=== PATIENT | male | born 1970 | race Caucasian/White ===

== ENCOUNTER 2018-11-20 17:09 | Emergency (ER) | payer OTHER ==
[~2018-11-20] VITALS: Ht 180.3 cm; Wt 88.5 kg
[2018-11-20 19:14] VITALS: BP 131/75
== END 2018-11-20 19:15 | disposition home or self-care (01) ==
LOC: ED 19:09
DX: R20.2 Paresthesia of skin (principal); R42 Dizziness and giddiness; M54.5 Low back pain; R11.0 Nausea; Z90.89 Acquired absence of other organs
CPT/HCPCS: 36415; 71046; 80048; 82040; 84484; 85025; 93005; 99284

== ENCOUNTER 2019-02-21 20:24 | Emergency (ER) | payer OTHER ==
[~2019-02-21] VITALS: Ht 180.3 cm; Wt 84.8 kg
[2019-02-21] MEDS ORDERED: KETOROLAC 60 MG/2 ML ONE (20:32)
[2019-02-21 20:54] LABS: BASOPHILS # (AUTO) 0.04 x10^3/uL (0-0.1); BASOPHILS % (AUTO) 1 % (0-1); EOSINOPHILS # (AUTO) 0.36 x10^3/uL (0-0.4); EOSINOPHILS % (AUTO) 5 % (1-7); LYMPHOCYTES # (AUTO) 1.73 x10^3/uL (1-3.4); LYMPHOCYTES % (AUTO) 24 % (22-44); MD NO; MEAN CORPUSCULAR HEMOGLOBIN 31.5 pg (27.5-34.5); MEAN CORPUSCULAR HGB CONC 33.3 g/dL (33.2-36.2); MEAN CORPUSCULAR VOLUME 94.5 fL (81-97); MEAN PLATELET VOLUME 10.8 fL (7.4-10.4); MONOCYTES # (AUTO) 0.49 x10^3/uL (0.2-0.8); MONOCYTES % (AUTO) 7 % (2-9); NEUTROPHILS # (AUTO) 4.47 x10^3/uL (1.8-6.8); NEUTROPHILS % (AUTO) 63 % (42-75); PLATELET COUNT 201 x10^3/uL (130-400); RED BLOOD COUNT 5.03 x10^6/uL (4.38-5.82); RED CELL DISTRIBUTION WIDTH 12.3 % (9.4-14.8)
[2019-02-21 21:00] VITALS: BP 114/77
[2019-02-21] MEDS ORDERED: KETOROLAC 30 MG/1 ML IM ONE (21:00)
--- NOTE | 2019-02-21 21:00 | NUR ---
CC UA COLLECTED AND SENT TO THE LAB.
[2019-02-21 21:03] LABS: ALBUMIN 3.9 g/dL (3.4-5.0); ANION GAP 6 mmol/L (5-15); CALCIUM 8.8 mg/dL (8.5-10.1); CHLORIDE 108 mmol/L (98-107); CREATININE 0.99 mg/dL (0.7-1.3)
--- NOTE | 2019-02-21 21:05 | NUR ---
THE PT STATED THAT HIS PAIN IS "BETTER".
[2019-02-21 21:11] LABS: CULTURE INDICATED? NO; MICROSCOPIC NOT IND
== END 2019-02-21 21:48 | disposition home or self-care (01) ==
LOC: ED 20:36
DX: R10.31 Right lower quadrant pain (principal); R35.0 Frequency of micturition; Z90.89 Acquired absence of other organs
CPT/HCPCS: 36415; 74176; 80048; 81003; 82040; 85025; 96372; 99284; J1885

== ENCOUNTER 2020-01-09 11:44 | Emergency (ER) | payer OTHER ==
[~2020-01-09] VITALS: Ht 180.3 cm; Wt 90.9 kg
--- NOTE | 2020-01-09 12:18 | NUR ---
C/O RLQ ABD PAIN RADIATES DOWN TO GROIN AND BACK X1 WEEK. PLACED ON VITALS MONITORS, CALL LIGHT PLACED WITHIN REACH.
[2020-01-09] MEDS ORDERED: SODIUM CHLORIDE FLUSH 10ML SYR IVF ONE (12:30)
[2020-01-09] MEDS ORDERED: ONDANSETRON 2MG/ML, 2ML IVPush ONE (12:30)
[2020-01-09] MEDS ORDERED: ONDANSETRON 2MG/ML, 2ML ONE (12:32)
[2020-01-09] MEDS ORDERED: MORPHINE SULFATE 4 MG/ML, 1ML ONE ×2 (12:32→13:03)
[2020-01-09] MEDS: MORPHINE SULFATE 4 MG/ML, 1ML IVPush PRN ×2 (12:35→13:06)
[2020-01-09 12:41] LABS: BASOPHILS # (AUTO) 0.06 x10^3/uL (0-0.1); BASOPHILS % (AUTO) 1 % (0-1); EOSINOPHILS # (AUTO) 0.26 x10^3/uL (0-0.4); EOSINOPHILS % (AUTO) 4 % (1-7); LYMPHOCYTES # (AUTO) 1.72 x10^3/uL (1-3.4); LYMPHOCYTES % (AUTO) 25 % (22-44); MD NO; MEAN CORPUSCULAR HEMOGLOBIN 30.8 pg (27.5-34.5); MEAN CORPUSCULAR HGB CONC 33.5 g/dL (33.2-36.2); MEAN PLATELET VOLUME 10.1 fL (7.4-10.4); MONOCYTES # (AUTO) 0.38 x10^3/uL (0.2-0.8); MONOCYTES % (AUTO) 6 % (2-9); NEUTROPHILS # (AUTO) 4.48 x10^3/uL (1.8-6.8); NEUTROPHILS % (AUTO) 65 % (42-75); PLATELET COUNT 231 x10^3/uL (130-400); RED BLOOD COUNT 5.33 x10^6/uL (4.38-5.82); RED CELL DISTRIBUTION WIDTH 12.7 % (9.4-14.8)
--- NOTE | 2020-01-09 12:46 | NUR ---
PT TRANSPORTED TO CT.
[2020-01-09 12:49] LABS: MICROSCOPIC NOT IND
[2020-01-09 12:51] LABS: ALANINE AMINOTRANSFERASE 44 U/L (12-78); ANION GAP 6 mmol/L (5-15); CALCIUM 9.2 mg/dL (8.5-10.1); CHLORIDE 109 mmol/L (98-107); CREATININE 0.92 mg/dL (0.7-1.3)
[2020-01-09 12:53] LABS: ALKALINE PHOSPHATASE 96 U/L (45-117); BILIRUBIN,TOTAL 0.6 mg/dL (0.2-1.0); TOTAL PROTEIN 7.8 g/dL (6.4-8.2)
[2020-01-09 13:55] VITALS: BP 117/74
--- NOTE | 2020-01-09 13:55 | NUR ---
PT RESTING ON [place] IN NAD, REPORTS PAIN SUBSIDED AFTER PAIN MEDS. VSS. CALL LIGHT WITHIN REACH.
== END 2020-01-09 15:20 | disposition home or self-care (01) ==
LOC: ED 13:15
DX: R10.31 Right lower quadrant pain (principal); M54.5 Low back pain; Z90.89 Acquired absence of other organs
CPT/HCPCS: 36415; 74176; 76870; 80053; 81003; 85025; 96374; 96375; 96376; 99285; J2270; J2405